=== PATIENT | male | born 1995 | race Caucasian/White ===

== ENCOUNTER 2016-09-20 00:50 | Emergency (ER) | payer OTHER ==
[~2016-09-20] VITALS: Ht 188 cm; Wt 79.5 kg
[2016-09-20 00:56] VITALS: BP 125/90; PULSE 75; TEMP 97.8
[2016-09-20] MEDS ORDERED: PREDNISONE20 MG PO (01:11)
== END 2016-09-20 01:56 | disposition home or self-care (01) ==
LOC: COL.ER 00:50
DX: L50.0 Allergic urticaria (principal)
CPT/HCPCS: J7512